=== PATIENT | male | born 1930 | race Caucasian/White ===

== ENCOUNTER 2017-09-30 12:12 | Emergency (ER) | payer MEDICARE ==
[~2017-09-30] VITALS: Ht 157.5 cm; Wt 65.8 kg
[2017-09-30] MEDS ORDERED: SPIRIVA18 MCG INH (13:52)
[2017-09-30] MEDS ORDERED: TOPROL XL50 MG PO (13:52)
[2017-09-30] MEDS ORDERED: ADVAIR 100-501 EACH (13:52)
[2017-09-30] MEDS ORDERED: CLONIDINE HCL0.2 MG (13:52)
[2017-09-30] MEDS ORDERED: COQ-10100 MG (13:52)
[2017-09-30] MEDS ORDERED: ASPIR 8181 MG (13:52)
[2017-09-30] MEDS ORDERED: RANITIDINE HCL300 M1 (13:52)
[2017-09-30] MEDS ORDERED: CLINDAMYCIN HC150 MG (13:52)
[2017-09-30] MEDS ORDERED: FUROSEMIDE40 MG PO (13:52)
[2017-09-30] MEDS ORDERED: PANTOPRAZOLE SO40 MG PO (13:52)
[2017-09-30] MEDS ORDERED: MAGNESIUM OXID400 MG PO (13:52)
[2017-09-30] MEDS ORDERED: PROVENTIL HFA6.7 GM (13:52)
[2017-09-30] MEDS ORDERED: ULTRAM 50MG50 MG PO (13:52)
[2017-09-30] MEDS ORDERED: NITROGLYCERIN0.4 MG SL (13:52)
[2017-09-30] MEDS ORDERED: TRAVATAN Z5 ML OP (13:52)
[2017-09-30] MEDS ORDERED: PRAMIPEXOLE DIHY1 MG (13:52)
[2017-09-30] MEDS ORDERED: MOTRIN IB200 MG (13:52)
[2017-09-30] MEDS ORDERED: NORVASC5 MG PO (13:52)
[2017-09-30] MEDS ORDERED: DIOVAN160 MG PO (13:52)
[2017-09-30] MEDS ORDERED: PRAVACHOL20 MG (13:52)
[2017-09-30] MEDS ORDERED: SPIRONOLACTONE25 MG PO (13:52)
[2017-09-30] MEDS ORDERED: FUROSEMIDE INJ 10 MG/ML 2 ML VIAL IV ONE (15:15)
[2017-09-30 18:39] VITALS: BP 139/63
== END 2017-09-30 18:15 | disposition short-term general hospital (02) ==
LOC: FSED 12:12
DX: R06.09 Other forms of dyspnea (principal); I35.0 Nonrheumatic aortic (valve) stenosis; I10 Essential (primary) hypertension; I25.10 Atherosclerotic heart disease of native coronary artery without angina pectoris; K21.9 Gastro-esophageal reflux disease without esophagitis; J44.9 Chronic obstructive pulmonary disease, unspecified; Z86.73 Personal history of transient ischemic attack (TIA), and cerebral infarction without residual deficits
CPT/HCPCS: 71045; 80053; 82553; 83880; 84484; 85025; 85379; 93005; 94760; 96374; 99284; J1940